=== PATIENT | female | born 1945 | race Caucasian/White ===

== ENCOUNTER → 2017-07-15 | Outpatient (CLI) | payer MEDICARE, OTHER ==
[~2017-07-15] MED LIST: ALE70 PO; ASPI-1441 PO; CA C1TAB3 PO; CALC3.7S7 NS; CEPH500C24 PO; CHOL200074 PO; HYDR-4309 PO; LOR5/325 PO; MULT1CAP59 PO; OCTIVITE PO; OMEP-218 PO; VITA-200 PO
--- NOTE | 2017-07-15 15:34 | RADIOLOGY IMAGING REPORT ---
FACILITY: [facility] - [place] PATIENT NAME: JANINE JEFFERSON : [id number] MR: [id number] V: [id number] EXAM DATE: ORDERING PHYSICIAN: CHUCK MARIA TECHNOLOGIST: Maricarmen Matthew PROCEDURE:BILATERAL DIGITAL SCREENING MAMMOGRAM WITH CAD ASSISTED INTERPRETATION & 3D TOMOSYNTHESIS COMPARISON:07/14/16 & priors back to 07/23/10 INDICATIONS:SCREENING FINDINGS: Breasts have heterogeneous parenchymal density. In the CC projection of the right breast there is a focal asymmetry or potential mass in the central posterior 6 o'clock area of the right breast which does not really have a good discrete correlate in the MLO projection. Left breast is mammographically unremarkable. There are no mammographic findings concerning for malignancy. DIAGNOSTIC CATEGORY 0--INCOMPLETE: NEED ADDITIONAL IMAGING EVALUATION. RECOMMENDATIONS: ADDITIONAL MAMMOGRAPHIC VIEWS REQUIRED: RIGHT BREAST. ULTRASOUND: RIGHT BREAST. IMPRESSION: BIRADS 0: Incomplete, need additional imaging evaluation. RECOMMENDATION: 1. Right breast diagnostic mammogram. Spot compression CC & MLO views with tomosynthesis as well as a true MLO view. 2. Ultrasound of the right breast if indicated by additional views. Dictated by: Gil Saleem on 07/15/2017 at 14:02 Transcribed by: MALIK on 07/15/2017 at 15:21 Approved by: Gil Saleem on 07/15/2017 at 15:33 [facility]
== END ==
LOC: MAMO 00:33
PROVIDERS: ATTEND Nurse Practitioner Family
DX: Z12.31 Encounter for screening mammogram for malignant neoplasm of breast (principal); R92.8 Other abnormal and inconclusive findings on diagnostic imaging of breast
CPT/HCPCS: 77063; 77067

== ENCOUNTER → 2017-07-26 | Outpatient (CLI) | payer MEDICARE, OTHER ==
[~2017-07-26] MED LIST changes: +ASPI81TA94 PO
--- NOTE | 2017-07-26 15:09 | RADIOLOGY IMAGING REPORT ---
FACILITY: [facility] PATIENT NAME: Latanya Arellano : 1945 MR: [id number] V: [id number] EXAM DATE: ORDERING PHYSICIAN: CHUCK MARIA TECHNOLOGIST: Location: [facility] Patient: Latanya Arellano : 1945 Visit/Account:[id number] Date of Sevice: 07/26/2017 DEXA Scan Clinical history: Osteopenia postmenopausal. Comparison: DEXA scan from 08/05/2015. LUMBAR SPINE: The bone mineral density (BMD) measured from L1-L4 correlates with a Z-score of 2.0 and a T-score of 0.2 which is Normal as defined by the World Health Organization. The corresponding risk of fracture in the lumbar spine is Not increased compared with a young adult reference population. This value white s increase by 2.7 % since the prior study. More than 5% change is considered significant. HIP: Bone mineral density (BMD) measured in the LEFT total hip region correlates with a Z-score 0.7 and a T-score of -0.9 which is normal as defined by the World Health Organization. The corresponding risk of fracture in the hip is 1-2 t imes increased compared to a young adult reference population. This value has increased by 0.6 % sinc e the prior study. More than 5% change is considered significant. T score left femoral neck -1.8 Bone mineral density (BMD) measured in the Femoral Neck region measures 0.793 g/cm?. IMPRESSION: 1. Lumbar spine: Normal. There has been 2.7% increase in the bone mineral density since the previou s exam. 2. Left Total Hip: Normal. There has been 0.6% increase in the bone mineral density since the previ ous exam. 3. Femoral Neck: Bone Mineral Density is 0.793 g/cm? The next DEXA scan of this patient should include the following sites: L1-L4 and the left hip. FRAX? WHO Fracture Risk Assessment Tool link: <http://www.shef.ac.uk/FRAX/tool.jsp?locationValue=9> PLEASE NOTE: 1) The World Health Organization defines low BMD as follows: T-score Normal > -1 Osteopenia < -1 and > -2.5 Osteoporosis < -2.5 without fractures Established osteoporosis < -2.5 with fractures 2) In general, you may wish to consider: Diagnosis Treatment Follow-up DEXA Normal BMD Prevention 2-3 years Osteopenia Prevention/therapy 1-2 years Osteoporosis Therapy Yearly 3) Fracture risk estimated from the T-score is more accurate for vertebral fractures (often spontane ous) than for hip fractures. Report Dictated By: Lisa Caceres MD at 07/26/2017 3:03 PM Report E-Signed By: Lisa Caceres MD at 07/26/2017 3:04 PM WSN:[id number]
--- NOTE | 2017-07-26 17:33 | RADIOLOGY IMAGING REPORT ---
FACILITY: [facility] PATIENT NAME: JANINE JEFFERSON : [id number] MR: [id number] V: [id number] EXAM DATE: ORDERING PHYSICIAN: CHUCK MARIA TECHNOLOGIST: Jena Garzon PROCEDURE:RIGHT DIGITAL DIAGNOSTIC MAMMOGRAM WITH 3D TOMOSYNTHESIS COMPARISON:Prior mammograms 07/15/17, 07/14/16, 07/11/15, 08/16/13, 08/15/12, 07/21/11, 07/23/10 INDICATIONS:FURTHER EVAL FINDINGS: The patient returns for a mediolateral view of the right breast and spot compression views in the right CC and MLO projection. A lateral rolled view of the right breast in CC projection also submitted. Moderately dense fibroglandular tissue again seen throughout the right breast. A focal area of increased density posterior to mid nipple line on the previous right CC view appeared compressible & dissipated on the rolled view. No abnormality identified on the compression views along the inferior aspect of the right MLO view. There is no demonstration of appearing mass, malignant appearing calcification or other secondary sign of malignancy in the right breast. DIAGNOSTIC CATEGORY 2--BENIGN FINDING. RECOMMENDATIONS: ROUTINE MAMMOGRAM AND CLINICAL EVALUATION. IMPRESSION: BIRADS 2: Benign finding No significant abnormality is seen Dictated by: Lisa Caceres M.D. on 07/26/2017 at 15:09 Transcribed by: NALLELY on 07/26/2017 at 16:18 Approved by: Lisa Caceres M.D. on 07/26/2017 at 17:32 [facility]
== END ==
LOC: MAMO 02:27
PROVIDERS: ATTEND Nurse Practitioner Family
DX: Z13.820 Encounter for screening for osteoporosis (principal); Z78.0 Asymptomatic menopausal state; R92.2 Inconclusive mammogram
CPT/HCPCS: 77065; 77080

== ENCOUNTER 2017-07-27 02:45 | Day surgery (SDC) | payer MEDICARE, OTHER ==
[~2017-07-27] VITALS: Ht 157.5 cm; Wt 65.3 kg
[2017-07-27 07:35] VITALS: BP 114/76
[2017-07-27] MEDS ORDERED: NORMOSOL R SOLN(*) 1000 ML BAG 1,000 ML IV PRN (08:00)
[2017-07-27] MEDS ORDERED: LIDOCAINE/SOD BICARB 8.4% SYR ID ONE (08:00)
[2017-07-27] MEDS ORDERED: MIDAZOLAM 2 MG/2 ML VIAL IVP PRN (08:00)
[2017-07-27 10:28] VITALS: BP 93/65
--- NOTE | 2017-07-27 10:39 | Short(Outpt) Discharge Summary ---
Discharge Summary Reason for Hosp/Final Diag: (1) Colon cancer screening Status: Chronic Hospital Course & Plan: Colonoscopy with polypectomy x1 completed without problems. Departure Discharge to: Home, Self Care Discharge Instructions Home Meds Reported Medications Aspirin (ASPIRIN) 81 Mg Tab.chew, 81 MG PO QDAY, TAB.CHEW 07/20/17 Omeprazole Magnesium (PRILOSEC OTC) 20 Mg Tablet.dr, 1 TAB PO 2XW, TAB 04/26/15 Diet: Regular Activity: As Tolerated Special Instructions: Your colonoscopy was completed without any problems and your prep was excellent (Good Job!!). I removed a polyp from your colon and the only other abnormality was diverticuli in your sigmoid colon (the condition is called diverticulosis; diveriticulitis if they become infected which yours are not). My office will call you to let you know what the polyp is and when your next colonoscopy should be. Regarding the diverticuli, these occur in up to 50% of people and they are benign; less than 10% of people with diverticulosis have any problems with them (mostly infection). My only recommendation to you is to increase the amount of fruits and vegetable that you eat, try to have a serving of fruit with breakfast, a serving each of fruit and vegetables for lunch, and 2 servings of vegetables with dinner (i.e. a salad and another vegetable, etc). You can also take a daily fiber supplement such as metamucil (psyllium) or citrucel (methylcellulose) to prevent more diverticuli from developing. NELLIE MEDEROS MD Jul 27, 2017 10:39
[2017-07-27 10:41] VITALS: BP 99/61
[2017-07-27 11:10] VITALS: BP 95/72
[2017-07-27 11:12] VITALS: BP 97/76
== END 2017-07-27 11:25 | disposition home or self-care (01) ==
LOC: OR 02:45
PROVIDERS: ATTEND Surgery
DX: Z12.11 Encounter for screening for malignant neoplasm of colon (principal); K63.5 Polyp of colon; K57.30 Diverticulosis of large intestine without perforation or abscess without bleeding
CPT/HCPCS: 88305

== ENCOUNTER 2017-09-29 08:38 | Emergency (ER) | payer MEDICARE, OTHER ==
--- NOTE | 2017-09-29 08:50 | ER Report ---
History and Physical Time Seen By MD: 08:49 HPI/ROS CHIEF COMPLAINT: Not feeling well HISTORY OF PRESENT ILLNESS: Patient is a 72-year-old female who presents with 2- 3 days of dizzy spells associated with nausea and some vomiting. She denies any chest pain or shortness of breath. She denies any abdominal pain. He shouldn't vomited just prior to coming to the emergency department today. She states she' s not had similar episodes like this in the past. She has not had any syncopal episodes. Family denies any change in pattern of speech. Patient is fairly healthy and maintains an active lifestyle. She has no known ill contacts. REVIEW OF SYSTEMS: Constitutional: No fever, no chills. Eyes: No discharge. ENT: No sore throat. Cardiovascular: No chest pain, no palpitations. Respiratory: No cough, no shortness of breath. Gastrointestinal: No abdominal pain, nausea associated with vomiting Genitourinary: No hematuria. Musculoskeletal: No back pain. Skin: No rashes. Neurological: No headache. Dizzy spells Allergies: Coded Allergies: Fish Containing Products (Verified Allergy, Mild, COUGH, 09/29/17) oxycodone (Verified Adverse Reaction, Intermediate, nausea and vomiting, ) Home Meds Active Scripts Meclizine Hcl (MECLIZINE HCL) 25 Mg Tablet, 25 MG PO TID for dizziness, #30 TAB 0 Refills Prov:BLADIMIR HOSKINS MD 09/29/17 Reported Medications Aspirin (ASPIRIN) 81 Mg Tab.chew, 81 MG PO QDAY, TAB.CHEW 07/20/17 Omeprazole Magnesium (PRILOSEC OTC) 20 Mg Tablet.dr, 1 TAB PO 2XW, TAB 04/26/15 Past Medical/Surgical History Past medical history for osteopenia past history for GERD Hx Smoking: No Smoking Status: Never Smoker Exposure to Second Hand Smoke?: No Hx Substance Use Disorder: No Hx Alcohol Use: Yes Constitutional Vital Sign - Last 24 Hours 09/29/17 09/29/17 09/29/17 09/29/17 08:49 09:00 09:30 10:00 Temp 97.6 Pulse 71 68 66 73 Resp 14 16 19 12 B/P (MAP) 152/79 124/74 (91) 123/76 (92) 135/78 (97) Pulse Ox 94 97 94 97 O2 Delivery Room Air 09/29/17 10:27 B/P (MAP) 133/78 (96) Intake and Output 09/29/17 09/29/17 09/30/17 15:00 23:00 07:00 Intake Total 1000 ml Balance 1000 ml Physical Exam General/Constitutional: Patient is awake, alert, nontoxic and in no acute respiratory distress. Head: Normocephalic and atraumatic. Eyes: Conjunctival clear, Pupils are equal and reactive to light. Extraocular muscles are intact and symmetrical. Patient has bilateral horizontal fatigable nystagmus with rotation of the head Ears:External canals are clear. Tympanic membranes are clear with normal landmarks and light reflex. Nares: No rhinorrhea or bleeding. Turbinates are pink and moist. Oropharyngeal: Mucous membranes are moist. There is no pharyngeal erythema or exudate. There are no palatal petechiae. Uvula is midline and symmetrical. Neck: Supple, no adenopathy. Cardiovascular: Heart is regular rate and rhythm without audible murmurs, rubs or gallops. Pulmonary: Lungs are clear to auscultation bilaterally. There are no wheezes, rales, or rhonchi. Chest rise is symmetrical Abdomen: Soft, nontender, no guarding or peritoneal signs. Extremities: No gross deformities, No peripheral cyanosis. Able to move all 4 extremities. Neuro: Alert and oriented X3, Cranial nerves 2 thru 12 are intact and symmetrical. Patient has normal gait. Skin: No rashes, skin is warm dry and well perfused. Medical Decision Making Data Points Result Diagram: 09/29/17 0859 09/29/17 0859 Laboratory Hematology Test 09/29/17 08:59 09/29/17 10:12 Red Blood Count 4.67 M/uL (4.17-5.56) Mean Corpuscular Volume 94.6 fL (80.0-96.0) Mean Corpuscular Hemoglobin 32.3 pg (26.0-33.0) Mean Corpuscular Hemoglobin Concent 34.1 g/dL (32.0-36.0) Red Cell Distribution Width 13.5 % (11.5-14.5) Mean Platelet Volume 7.7 fL (7.2-11.1) Neutrophils (%) (Auto) 43.2 % (39.4-72.5) Lymphocytes (%) (Auto) 46.4 % (17.6-49.6) Monocytes (%) (Auto) 7.7 % (4.1-12.4) Eosinophils (%) (Auto) 1.7 % (0.4-6.7) Basophils (%) (Auto) 1.0 % (0.3-1.4) Nucleated RBC Relative Count (auto) 0.1 /100WBC Neutrophils # (Auto) 2.6 K/uL (2.0-7.4) Lymphocytes # (Auto) 2.8 K/uL (1.3-3.6) Monocytes # (Auto) 0.5 K/uL (0.3-1.0) Eosinophils # (Auto) 0.1 K/uL (0.0-0.5) Basophils # (Auto) 0.1 K/uL (0.0-0.1) Nucleated RBC Absolute Count (auto) 0.01 K/uL Peripheral Blood Smear Yes Y/N Sodium Level 139 mmol/L (137-145) Potassium Level 3.7 mmol/L (3.5-5.0) Chloride Level 104 mmol/L (98-107) Carbon Dioxide Level 22 mmol/L (22-31) Blood Urea Nitrogen 13 mg/dl (7-18) Creatinine 0.70 mg/dl (0.52-1.04) Glomerular Filtration Rate Calc > 60.0 Random Glucose 141 mg/dl (75-110) Calcium Level 9.2 mg/dl (8.4-10.2) Total Bilirubin 0.9 mg/dl (0.2-1.3) Aspartate Amino Transf (AST/SGOT) 25 U/L (0-35) Alanine Aminotransferase (ALT/SGPT) 20 U/L (0-56) Alkaline Phosphatase 80 U/L (0-126) Troponin I < 0.012 ng/ml Total Protein 6.9 gm/dl (6.3-8.2) Albumin 4.0 g/dl (3.5-5.0) Urine Color Yellow Urine Clarity Slightly-cloudy Urine pH 7.0 pH (4.8-9.5) Urine Specific Jackson 1.017 Urine Protein Negative mg/dL (NEGATIVE) Urine Glucose (UA) Negative mg/dL (NEGATIVE) Urine Ketones Trace mg/dL (NEGATIVE) Urine Blood Negative (NEGATIVE) Urine Nitrite Negative (NEGATIVE) Urine Bilirubin Negative (NEGATIVE) Urine Urobilinogen Negative mg/dL (0.2-1.9) Urine Leukocyte Esterase Negative (NEGATIVE) Urine RBC <1 /HPF (0-2/HPF) Urine WBC 1 /HPF (0-5/HPF) Urine Squamous Epithelial Cells Few /LPF (</=FEW) Urine Amorphous Crystals Few /HPF Urine Bacteria Few /HPF (NONE-FEW) Urine Mucus Few /HPF (NONE-FEW) Chemistry Test 09/29/17 08:59 09/29/17 10:12 White Blood Count 5.9 k/uL (4.5-11.0) Red Blood Count 4.67 M/uL (4.17-5.56) Hemoglobin 15.1 g/dL (12.0-16.0) Hematocrit 44.2 % (34.0-47.0) Mean Corpuscular Volume 94.6 fL (80.0-96.0) Mean Corpuscular Hemoglobin 32.3 pg (26.0-33.0) Mean Corpuscular Hemoglobin Concent 34.1 g/dL (32.0-36.0) Red Cell Distribution Width 13.5 % (11.5-14.5) Platelet Count 217 K/uL (150-450) Mean Platelet Volume 7.7 fL (7.2-11.1) Neutrophils (%) (Auto) 43.2 % (39.4-72.5) Lymphocytes (%) (Auto) 46.4 % (17.6-49.6) Monocytes (%) (Auto) 7.7 % (4.1-12.4) Eosinophils (%) (Auto) 1.7 % (0.4-6.7) Basophils (%) (Auto) 1.0 % (0.3-1.4) Nucleated RBC Relative Count (auto) 0.1 /100WBC Neutrophils # (Auto) 2.6 K/uL (2.0-7.4) Lymphocytes # (Auto) 2.8 K/uL (1.3-3.6) Monocytes # (Auto) 0.5 K/uL (0.3-1.0) Eosinophils # (Auto) 0.1 K/uL (0.0-0.5) Basophils # (Auto) 0.1 K/uL (0.0-0.1) Nucleated RBC Absolute Count (auto) 0.01 K/uL Peripheral Blood Smear Yes Y/N Glomerular Filtration Rate Calc > 60.0 Calcium Level 9.2 mg/dl (8.4-10.2) Total Bilirubin 0.9 mg/dl (0.2-1.3) Aspartate Amino Transf (AST/SGOT) 25 U/L (0-35) Alanine Aminotransferase (ALT/SGPT) 20 U/L (0-56) Alkaline Phosphatase 80 U/L (0-126) Troponin I < 0.012 ng/ml Total Protein 6.9 gm/dl (6.3-8.2) Albumin 4.0 g/dl (3.5-5.0) Urine Color Yellow Urine Clarity Slightly-cloudy Urine pH 7.0 pH (4.8-9.5) Urine Specific Jackson 1.017 Urine Protein Negative mg/dL (NEGATIVE) Urine Glucose (UA) Negative mg/dL (NEGATIVE) Urine Ketones Trace mg/dL (NEGATIVE) Urine Blood Negative (NEGATIVE) Urine Nitrite Negative (NEGATIVE) Urine Bilirubin Negative (NEGATIVE) Urine Urobilinogen Negative mg/dL (0.2-1.9) Urine Leukocyte Esterase Negative (NEGATIVE) Urine RBC <1 /HPF (0-2/HPF) Urine WBC 1 /HPF (0-5/HPF) Urine Squamous Epithelial Cells Few /LPF (</=FEW) Urine Amorphous Crystals Few /HPF Urine Bacteria Few /HPF (NONE-FEW) Urine Mucus Few /HPF (NONE-FEW) Urinalysis Test 09/29/17 10:12 Urine Color Yellow Urine Clarity Slightly-cloudy Urine pH 7.0 pH (4.8-9.5) Urine Specific Jackson 1.017 Urine Protein Negative mg/dL (NEGATIVE) Urine Glucose (UA) Negative mg/dL (NEGATIVE) Urine Ketones Trace mg/dL (NEGATIVE) Urine Blood Negative (NEGATIVE) Urine Nitrite Negative (NEGATIVE) Urine Bilirubin Negative (NEGATIVE) Urine Urobilinogen Negative mg/dL (0.2-1.9) Urine Leukocyte Esterase Negative (NEGATIVE) Urine RBC <1 /HPF (0-2/HPF) Urine WBC 1 /HPF (0-5/HPF) Urine Squamous Epithelial Cells Few /LPF (</=FEW) Urine Amorphous Crystals Few /HPF Urine Bacteria Few /HPF (NONE-FEW) Urine Mucus Few /HPF (NONE-FEW) EKG/Imaging EKG Interpretation EKG shows normal sinus rhythm with no significant ST segment or T-wave abnormalities. Monitor Interpretation: Normal Sinus Rhythm ED Course/Re-evaluation ED Course 09/29/2017 10:20:26 am history physical exam findings most consistent with benign positional vertigo. CT scan of the head is unremarkable blood work is normal. Patient got symptomatic relief with meclizine. Plan at this time will be discharge home. Patient was instructed follow-up with her primary care provider if symptoms persist over the weekend. Decision to Disposition Date: Sep 29, 2017 Decision to Disposition Time: 10:20 Depart Departure Latest Vital Signs Vital Signs Date Time Temp Pulse Resp B/P (MAP) Pulse Ox O2 Delivery O2 Flow Rate FiO2 09/29/17 10:27 133/78 (96) 09/29/17 10:00 73 12 97 09/29/17 08:49 97.6 Room Air Impression: Primary Impression: Benign positional vertigo Condition: Improved Disposition: HOME OR SELF-CARE Referrals: MAGALY RUBIO [facility] (PCP) 5 Days if symptoms persist New Scripts Meclizine Hcl (MECLIZINE HCL) 25 Mg Tablet 25 MG PO TID for dizziness, #30 TAB 0 Refills Prov: BLADIMIR HOSKINS MD 09/29/17 Patient Instructions: Benign Paroxysmal Positional Vertigo (ED) Problem Qualifiers Primary Impression: Benign positional vertigo Laterality: unspecified laterality Qualified Codes: H81.10 - Benign paroxysmal vertigo, unspecified ear BLADIMIR HOSKINS MD Sep 29, 2017 08:50
[2017-09-29] MEDS ORDERED: NS(*) 0.9% 1000 ML BAG 1,000 ML IV ONE (09:08)
[2017-09-29] MEDS ORDERED: MECLIZINE HCL 25 MG TAB PO ONE (09:10)
[2017-09-29 09:17] LABS: PLATELET COUNT, AUTOMATED 217 K/uL (150-450)
--- NOTE | 2017-09-29 09:46 | EKG ---
FACILITY: [facility] - [place] PATIENT NAME: JANINE JEFFERSON : [id number] MR: [id number] V: [id number] EXAM DATE: ORDERING PHYSICIAN: BLADIMIR HOSKINS TECHNOLOGIST: JYOTHI Test Reason : VERTIGO Blood Pressure : / mmHG Vent. Rate : 063 BPM Atrial Rate : 063 BPM P-R Int : 170 ms QRS Dur : 084 ms QT Int : 450 ms P-R-T Axes : 072 031 032 degrees QTc Int : 460 ms Normal sinus rhythm Normal ECG When compared with ECG of 28-JAN-2016 12:10, No significant change was found Confirmed by NELLIE ANDRE ([id number]) on 09/29/2017 12:31:31 PM Referred By: GATO Confirmed By:NELLIE ANDRE
--- NOTE | 2017-09-29 10:01 | RADIOLOGY IMAGING REPORT ---
FACILITY: [facility] - [place] PATIENT NAME: Latanya Arellano : 1945 MR: [id number] V: [id number] EXAM DATE: ORDERING PHYSICIAN: BLADIMIR HOSKINS TECHNOLOGIST: Location: [facility] Patient: Latanya Arellano : 1945 Visit/Account:[id number] Date of Sevice: 09/29/[address] scan without contrast HISTORY: Dizziness COMPARISONS: None TECHNIQUE: Non-contrast head CT was performed with sagittal and coronal reformations. One of the following dose optimization techniques was utilized in the performance of this exam: autom ated exposure control; adjustment of the mA and/or kV according to patient size; or use of iterative reconstruction technique. Specific details can be referenced in the facility's radiology CT exam ope rational policy. FINDINGS: There is no intracranial hemorrhage, hydrocephalus or midline shift. The basal cisterns, adame-white differentiation, and convexity sulci are maintained. Normal orbital soft tissues. The mastoid air cells are clear. The paranasal sinuses are clear. The osseous structures are normal . IMPRESSION: No acute intracranial abnormality. Normal head CT. Report Dictated By: Bill Mesa MD at 09/29/2017 9:56 AM Report E-Signed By: Bill Mesa MD at 09/29/2017 9:58 AM WSN:[id number]
[2017-09-29] MEDS ORDERED: MECL25TA9 PO (10:23)
[2017-09-29 10:27] VITALS: BP 133/78
== END 2017-09-29 10:36 | disposition home or self-care (01) ==
LOC: ER 08:44
DX: H81.10 Benign paroxysmal vertigo, unspecified ear (principal)
CPT/HCPCS: 70450; 81001; 84484; 85025; 87088; 93005; 96360; 99284; J7030; J8597; 82040; 82247; 82310; 82374; 82435; 82565; 82947; 84075; 84132; 84155; 84295; 84450; 84460; 84520

== ENCOUNTER → 2018-07-28 | Outpatient (CLI) | payer MEDICARE, OTHER ==
[~2018-07-28] MED LIST changes: -HYDR-4309 PO; +HYDR-653 PO; +MECL25TA9 PO
--- NOTE | 2018-07-31 18:04 | RADIOLOGY IMAGING REPORT ---
FACILITY: [facility] [place] PATIENT NAME: JANINE JEFFERSON : [id number] MR: [id number] V: [id number] EXAM DATE: ORDERING PHYSICIAN: MAGALY RUBIO TECHNOLOGIST: Maricarmen Matthew PROCEDURE:BILATERAL DIGITAL SCREENING MAMMOGRAM WITH CAD ASSISTED INTERPRETATION & 3D TOMOSYNTHESIS COMPARISON:Prior mammograms 07/26/17, 07/15/17, 07/14/16, 07/11/15, 08/16/13, 08/15/12. INDICATIONS:screening FINDINGS: The breasts are heterogeneously dense which can obscure small masses. The parenchymal pattern has remained stable allowing for difference in mammographic technique & patient positioning. DIAGNOSTIC CATEGORY 1--NEGATIVE. RECOMMENDATIONS: ROUTINE MAMMOGRAM AND CLINICAL EVALUATION. IMPRESSION: BIRADS 1: Negative. No significant abnormality is seen. Dictated by: Lisa Caceres M.D. on 07/28/2018 at 14:35 Transcribed by: NALLELY on 07/29/2018 at 12:23 Approved by: Lisa Caceres M.D. on 07/31/2018 at 18:04 [facility]
== END ==
LOC: MAMO 03:13
PROVIDERS: ATTEND Nurse Practitioner Family
DX: Z12.31 Encounter for screening mammogram for malignant neoplasm of breast (principal)
CPT/HCPCS: 77063; 77067